=== PATIENT | male | born 1940 | race Caucasian/White ===

== ENCOUNTER 2018-11-05 13:20 | Emergency (ER) | payer MEDICARE ==
[~2018-11-05] VITALS: Ht 185.4 cm; Wt 115.0 kg
[2018-11-05] MEDS ORDERED: DESVENLAFAXINE50 M2 PO (13:52)
[2018-11-05] MEDS ORDERED: ZESTRIL10 M1 PO (13:52)
[2018-11-05] MEDS ORDERED: ROSUVASTATIN CA20 MG PO (13:54)
[2018-11-05] MEDS ORDERED: METOPROLOL50 M1 PO (13:55)
[2018-11-05] MEDS ORDERED: ACID CONTROLLER20 MG PO (13:56)
[2018-11-05] MEDS ORDERED: ZOLPIDEM10 M1 PO (13:57)
[2018-11-05] MEDS ORDERED: HYDROCHLOROT25 MG PO (13:57)
[2018-11-05] MEDS ORDERED: INDOMETHACIN25 MG PO (14:00)
[2018-11-05] MEDS ORDERED: ZYRTEC10 M5 PO (14:00)
[2018-11-05] MEDS ORDERED: ZINC50 MG PO (14:01)
[2018-11-05] MEDS ORDERED: ELIQUIS5 MG PO (14:01)
[2018-11-05] MEDS ORDERED: VITAMIN D31000 UNI1 PO (14:02)
[2018-11-05] MEDS ORDERED: MAGNESIUM500 M1 PO (14:03)
[2018-11-05] MEDS ORDERED: FISH OIL1 CAP PO (14:04)
[2018-11-05] MEDS ORDERED: COCONUT PO (14:05)
[2018-11-05 14:25] LABS: HEMATOCRIT 50.4 % (39.0-50.0); HEMOGLOBIN 15.5 g/dl (14.0-18.0); IMMATURE GRANULOCYTES 0.5 % (0.0-5.0); MEAN CELL VOLUME 82.8 fL CALC (80.0-100.0); MEAN CORPUSCULAR HGB 25.5 pG CALC (26.0-32.0); MEAN CORPUSCULAR HGB CONC 30.8 g/L CALC (32.0-36.0); NEUT# 4.74 thou/uL (1.82-7.42); RED BLOOD COUNT 6.09 mill/uL (4.70-6.10); RED CELL DISTRI WIDTH 17.3 % (11.5-15.5)
[2018-11-05 14:32] LABS: ALBUMIN 4.3 g/dL (3.2-5.0); ALKALINE PHOSPHATASE 44 u/l (38-126); ANION GAP 16 (6-22 (CALC)); BUN 16 mg/dL (8-23); BUN/CREATININE RATIO 23 (12-20 (CALC)); CARBON DIOXIDE 24 mmol/l (22-30); CHLORIDE 102 mmol/l (95-108); CREATININE 0.7 mg/dL (0.7-1.3); GFR > 60 ML/MIN (>=60 (CALC)); GFR FOR AFR.AMER. > 60 ML/MIN (>=60 (CALC)); POTASSIUM 4.4 mmol/l (3.5-5.1); SGOT/AST 36 u/l (19-48); SODIUM 138 mmol/l (137-146); TOTAL PROTEIN 6.7 g/dL (6.3-8.2)
[2018-11-05 15:17] LABS: URINE BILIRUBIN - DIPSTICK NEGATIVE (NEGATIVE); URINE BLOOD DIPSTICK NEGATIVE (NEGATIVE); URINE COLOR YELLOW; URINE GLUCOSE - DIPSTICK NEGATIVE (NEGATIVE); URINE KETONE NEGATIVE (NEGATIVE); URINE LEUK ESTERASE NEGATIVE (NEGATIVE); URINE NITRITE - DIPSTICK NEGATIVE (Negative); URINE PROTEIN - DIPSTICK NEGATIVE (NEG-TRACE); URINE SPECIFIC GRAVITY 1.015; URINE UROBILINOGEN - DIPSTICK 0.2 E.U./dL (0.2)
[2018-11-05 15:35] VITALS: BP 132/88
== END 2018-11-05 15:35 | disposition left against medical advice (07) ==
LOC: ED 13:20
PROVIDERS: Family Medicine
DX: I25.119 Atherosclerotic heart disease of native coronary artery with unspecified angina pectoris (principal); I10 Essential (primary) hypertension; Z95.1 Presence of aortocoronary bypass graft; Z91.19 Patient's noncompliance with other medical treatment and regimen